=== PATIENT | male | born 1980 | race Hispanic/Latino ===

== ENCOUNTER 2021-12-07 14:48 | Observation (INO) | payer SELFPAY ==
[2021-12-07] VITALS (19 sets, daily range): BP systolic 104–128; BP diastolic 65–87
[~2021-12-07] VITALS: Ht 165.1 cm; Wt 80.0 kg
[2021-12-07 15:25] LABS: GFR > 60 ML/MIN (>=60 (CALC)); GFR FOR AFR.AMER. > 60 ML/MIN (>=60 (CALC))
[2021-12-07 15:27] LABS: HEMATOCRIT 43.7 % (39.0-50.0); HEMOGLOBIN 15.8 g/dl (14.0-18.0); IMMATURE GRANULOCYTES 0.5 % (0.0-5.0); MEAN CELL VOLUME 85.5 fL CALC (80.0-100.0); MEAN CORPUSCULAR HGB 30.9 pG CALC (26.0-32.0); MEAN CORPUSCULAR HGB CONC 36.2 g/dL CAL (32.0-36.0); NEUT# 6.91 thou/uL (1.82-7.42); RED BLOOD COUNT 5.11 mill/uL (4.70-6.10); RED CELL DISTRI WIDTH 12.5 % (11.5-15.5)
[2021-12-07 15:43] LABS: PROTHROMBIN TIME 10.4 SECONDS (9.0-12.5)
[2021-12-07 15:45] LABS: ALBUMIN 4.4 g/dL (3.2-5.0); ALKALINE PHOSPHATASE 62 u/l (38-126); ANION GAP 15 (6-22 (CALC)); BILIRUBIN, TOTAL 0.7 mg/dL (0.0-1.4); BUN 12 mg/dL (9-20); BUN/CREATININE RATIO 14 (12-20 (CALC)); CARBON DIOXIDE 22 mmol/l (22-30); CHLORIDE 105 mmol/l (95-108); CREATININE 0.8 mg/dL (0.7-1.3); ETHYL ALCOHOL 0 mg/dl (0-30); GFR > 60 ML/MIN (>=60 (CALC)); GFR FOR AFR.AMER. > 60 ML/MIN (>=60 (CALC)); POTASSIUM 3.8 mmol/l (3.5-5.1); SGOT/AST 35 u/l (17-59); SODIUM 138 mmol/l (137-146); TOTAL PROTEIN 7.7 g/dL (6.3-8.2)
[2021-12-07] MEDS ORDERED: LISINOPRIL20 M1 PO (15:49)
[2021-12-07 16:33] LABS: URINE BILIRUBIN - DIPSTICK NEGATIVE (NEGATIVE); URINE BLOOD DIPSTICK NEGATIVE (NEGATIVE); URINE COLOR YELLOW; URINE GLUCOSE - DIPSTICK NEGATIVE (NEGATIVE); URINE KETONE NEGATIVE (NEGATIVE); URINE LEUK ESTERASE NEGATIVE (NEGATIVE); URINE PROTEIN - DIPSTICK NEGATIVE (NEG-TRACE); URINE UROBILINOGEN - DIPSTICK 0.2 E.U./dL (0.2)
[2021-12-07 16:34] LABS: URINE NITRITE - DIPSTICK NEGATIVE (Negative)
[2021-12-07 18:50] LABS: ALBUMIN 4.4 g/dL (3.2-5.0); ALKALINE PHOSPHATASE 63 u/l (38-126); BILIRUBIN, TOTAL 0.7 mg/dL (0.0-1.4); C-REACTIVE PROTEIN 0.8 mg/dL (0-0.9); CALCULATED LDLCHOLESTEROL 99 mg/dL (62-129 (CALC)); CHOLESTEROL HDL RATIO 5.3 (<4.4 (CALC)); HDL CHOLESTEROL 32 mg/dL (>=40); MAGNESIUM 2.1 mg/dL (1.6-2.3); SGOT/AST 39 u/l (17-59); TOTAL CHOLESTEROL 168 mg/dl (0-199); TOTAL PROTEIN 7.6 g/dL (6.3-8.2); TOTAL TRIGLYCERIDES 189 mg/dl (30-149); VLDL CHOLESTROL 38 mg/dl (5-56 (CALC))
[2021-12-08] VITALS (39 sets, daily range): BP systolic 90–117; BP diastolic 54–76
[2021-12-08 05:36] LABS: HEMATOCRIT 40.2 % (39.0-50.0); HEMOGLOBIN 14.5 g/dl (14.0-18.0); IMMATURE GRANULOCYTES 0.6 % (0.0-5.0); MEAN CELL VOLUME 85.7 fL CALC (80.0-100.0); MEAN CORPUSCULAR HGB 30.9 pG CALC (26.0-32.0); MEAN CORPUSCULAR HGB CONC 36.1 g/dL CAL (32.0-36.0); NEUT# 7.71 thou/uL (1.82-7.42); RED BLOOD COUNT 4.69 mill/uL (4.70-6.10); RED CELL DISTRI WIDTH 12.7 % (11.5-15.5)
[2021-12-08 06:08] LABS: ANION GAP 13 (6-22 (CALC)); BUN 10 mg/dL (9-20); BUN/CREATININE RATIO 15 (12-20 (CALC)); CARBON DIOXIDE 23 mmol/l (22-30); CHLORIDE 107 mmol/l (95-108); CREATININE 0.7 mg/dL (0.7-1.3); GFR > 60 ML/MIN (>=60 (CALC)); GFR FOR AFR.AMER. > 60 ML/MIN (>=60 (CALC)); POTASSIUM 4.3 mmol/l (3.5-5.1); SODIUM 140 mmol/l (137-146)
[2021-12-08] MEDS ORDERED: ONDANSETRON4 MG PO (09:23)
[2021-12-08] MEDS ORDERED: MECLIZINE25 MG PO (09:23)
== END 2021-12-08 11:45 | disposition home or self-care (01) | DRG 149 ==
LOC: ED 14:48 → ED-I 16:35 → ED 17:01 → ICU 17:02
PROVIDERS: ADMIT Internal Medicine; ATTEND Internal Medicine
DX: R42 Dizziness and giddiness (principal); H93.12 Tinnitus, left ear; I10 Essential (primary) hypertension; F17.200 Nicotine dependence, unspecified, uncomplicated; Z20.822 Contact with and (suspected) exposure to COVID-19
CPT/HCPCS: J1650; Q9967

== ENCOUNTER 2024-07-01 20:58 | Emergency (ER) | payer SELFPAY ==
[~2024-07-01] VITALS: Ht 165.1 cm; Wt 95.3 kg
[2024-07-01] VITALS (7 sets, daily range): BP systolic 111–140; BP diastolic 61–89
[~2024-07-01 20:58] MED LIST: LISINOPRIL20 M1 PO; MECLIZINE25 MG PO; ONDANSETRON4 MG PO
[2024-07-01] MEDS ORDERED: MECLIZINE HCL 25 MG/TAB PO ONE (21:25)
[2024-07-01 21:49] LABS: BASO% 0.5 % (0-3); EOS% 1.4 % (0-8); HEMATOCRIT 41.3 % (39.0-50.0); IMMATURE GRANULOCYTES 0.1 % (0.0-5.0); LYMPH% 23.9 % (15-41); MEAN CELL VOLUME 84.6 fL CALC (80.0-100.0); MEAN CORPUSCULAR HGB 30.7 pG CALC (26.0-32.0); MEAN CORPUSCULAR HGB CONC 36.3 g/dL CAL (32.0-36.0); MONO% 5.5 % (2-13); NEUT# 6.37 thou/uL (1.82-7.42); NEUT% 68.6 % (42-76); RED BLOOD COUNT 4.88 mill/uL (4.70-6.10); RED CELL DISTRI WIDTH 12.5 % (11.5-15.5)
[2024-07-01] MEDS ORDERED: COZAAR50 MG PO (22:05)
[2024-07-01] MEDS ORDERED: MECLIZINE25 MG PO (22:05)
[2024-07-01] MEDS ORDERED: ROSUVASTATIN CA20 MG PO (22:07)
[2024-07-01 22:10] LABS: ALBUMIN 4.2 g/dL (3.2-5.0); CREATININE 0.8 mg/dL (0.7-1.3); POTASSIUM 4.1 mmol/l (3.5-5.1); TOTAL PROTEIN 7.2 g/dL (6.3-8.2)
[2024-07-01] MEDS ORDERED: FLONASE AL50 MCG/ACT (23:45)
[2024-07-02 00:09] VITALS: BP 111/61
== END 2024-07-02 00:09 | disposition home or self-care (01) | DRG 149 ==
LOC: ED 20:58
PROVIDERS: Family Medicine
DX: R42 Dizziness and giddiness (principal)